=== PATIENT | male | born 1960 | race Caucasian/White ===

== ENCOUNTER 2017-08-13 09:08 | Emergency (ER) | payer OTHER ==
[~2017-08-13] VITALS: Ht 172.7 cm; Wt 67.8 kg
[2017-08-13 09:12] VITALS: BP 153/89
[2017-08-13] MEDS ORDERED: FLUORESCEIN OPHTHALMIC 1 MG STRIP ONE (09:26)
[2017-08-13] MEDS ORDERED: PROPARACAINE OPHTH 0.5%, 15ML ONE (09:26)
[2017-08-13] MEDS ORDERED: ZOLP-413 PO (09:31)
[2017-08-13] MEDS ORDERED: PROPARACAINE OPHTH 0.5%, 15ML EACHEYE ONE (10:00)
[2017-08-13] MEDS ORDERED: FLUORESCEIN OPHTHALMIC 1 MG STRIP EACHEYE ONE (10:00)
== END 2017-08-13 09:54 | disposition home or self-care (01) ==
LOC: ED 09:50
DX: H10.11 Acute atopic conjunctivitis, right eye (principal); Z87.891 Personal history of nicotine dependence
CPT/HCPCS: 99283